=== PATIENT | male | born 1950 | race Caucasian/White ===

== ENCOUNTER → 2019-03-24 11:52 | Outpatient (CLI) | payer MEDICARE, SELFPAY ==
--- NOTE | 2019-03-24 12:37 | CT_ITS ---
PROCEDURE: CT ABDOMEN PELVIS W CON CLINICAL INDICATION: ABD PAIN Periumbilical pain COMPARISON: No exams were available for comparison TECHNIQUE: IV Contrast: 75ML OPTIRAY 350 Oral Contrast 20ml Gastroview Axial images obtained with sagittal and coronal reformats. All CT scans at the facility use one or more dose reduction, viz: automated exposure control, ma/kV adjustment per patient size (including targeted exams where dose is matched to indication, i.e. head), or iterative reconstruction technique. FINDINGS: LOWER THORAX: Lung bases are clear. There are coronary artery calcifications. ABDOMEN & PELVIS: There are multiple hypodense hepatic lesions the largest in the left hepatic lobe measuring 2.5 cm. These may be due to hepatic cyst and may be confirmed with nonemergent ultrasound. The spleen, adrenal glands, pancreas, and kidneys have an unremarkable appearance. There is mild thickening of the distal esophagus which is nonspecific. The appendix is not clearly delineated. There is no evidence of appendicitis. There are dilated loops of small bowel with mild thickening of the small bowel loops there is mild dilatation in the jejunal region. Most of the dilatation and thickening however is within the ileum. The distal ileum and terminal ileum however are not dilated. The colon is not dilated. Contrast is present in the distal ileum and colon. The small bowel transitions to normal caliber in the right lower quadrant without a definite transition point. These findings may be related to enteritis. Cannot exclude the possibility of a partial obstruction. Some of the small bowel loops measure up to 3 cm in diameter. There is no evidence of free air. Small amount of fluid is present in the right lower quadrant. There are small bilateral fat containing inguinal hernias. Severe osteoarthritic changes with subchondral cystic changes are present involving the left hip. IMPRESSION: 1. Dilated small bowel loops with bowel wall thickening which transitions to normal caliber in the right lower quadrant but without a focal transition point. This may represent diffuse enteritis. Follow-up suggested however as a partial small bowel obstruction is not completely excluded. 2. Multiple hepatic hypodense lesions which may be due to hepatic cysts. 3. The appendix is not clearly delineated. There is a small amount fluid in the right lower pelvic region however, the distended appendix is not identified. Dictated by: Ronny Alvarez MD 03/24/2019 15:59 Electronically signed by Ronny Alvarez MD in [place] 03/24/2019 15:59
[2019-03-24 12:42] LABS: Blood Urea Nitrogen 17 mg/dL (7-18); Creatinine,Serum 1.31 mg/dL (0.70-1.30); Estimated Glomerular Filt Rate 55 ml/min (>60); GFR (African American) 66 ML/MIN (>60)
== END ==
PROVIDERS: PCP Family Medicine; Visit Provider Family Medicine
DX: R10.9 Unspecified abdominal pain (principal)
CPT/HCPCS: 36415; 74177; 82565; 84520; Q9967

== ENCOUNTER → 2020-04-25 13:15 | Outpatient (CLI) | payer MEDICARE, SELFPAY ==
[2020-04-26 10:42] LABS: Covid-19 Nasal PCR Sendout P&C POSITIVE
== END ==
PROVIDERS: PCP Family Medicine; Visit Provider Family Medicine
DX: U07.1 COVID-19 (principal)
CPT/HCPCS: U0004

== ENCOUNTER → 2022-03-07 09:03 | Outpatient (CLI) | payer MEDICARE, SELFPAY ==
--- NOTE | 2022-03-07 09:08 | XR_ITS ---
FINAL REPORT CLINICAL HISTORY: LT HIP PAIN FINDINGS: Left hip with pelvis: Three views were obtained. There is marked narrowing of the left hip joint space with extensive subchondral sclerosis and osteophyte formation. The right hip joint space is preserved. There is underlying sclerosis and irregularity of the left femoral head probably due to avascular necrosis. There is no acute bony abnormality. 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 Reviewed, Interpreted and Dictated by Chirag Louis MD Transcribed by Stephen Barrios Authenticated and [facility]
== END ==
PROVIDERS: PCP Family Medicine; Visit Provider Family Medicine
DX: M25.552 Pain in left hip (principal)
CPT/HCPCS: 73502